=== PATIENT | female | born 1970 | race Two or more races ===

== ENCOUNTER 2019-01-22 21:23 | Emergency (ER) | payer MEDICAID ==
[~2019-01-22] VITALS: Ht 165.1 cm; Wt 70.8 kg
--- NOTE | 2019-01-22 21:55 | NUR ---
PT PRESENTED TO THE ER WITH A C/O RT KNEE PAIN/INJURY S/P HITTING IT ON THE CORNER OF THE COFFEE TABLE 2 DAYS AGO. PT THOUGHT IT WOULD BE BETTER IN A FEW DAYS, BUT STATED THAT IT IS WORSE TODAY. PT HAS MULT ICE PACKS ON THE RT KNEE.
--- NOTE | 2019-01-22 22:30 | NUR ---
PT TOOK HER OWN 600 MG IBUPROPHEN PER JOSÉ MIGUEL SANCHEZ.
--- NOTE | 2019-01-22 22:30 | NUR ---
Sp marx in ED - 01/22/19 at 2300 by MANINDER SIN GARCIA: EMANI
--- NOTE | 2019-01-22 23:00 | NUR ---
CALLING NEELA RE: XRAY
--- NOTE | 2019-01-22 23:26 | NUR ---
PT IS REC'ING A KNEE IMMOBILIZER. PT IS REFUSING CRUTCHES AT THIS TIME. JOSÉ MIGUEL [place] IS AWARE. Patient discharged to home in stable condition. Written and verbal after care instructions given. Patient verbalizes understanding of instruction. PT REC'D A REFERRAL TO [facility] AND A COPY OF THE IMAGING ON DISK. PT ALSO REC'D A COPY OF THE XRAY FINDINGS. PT'S DAUGHTER IS DRIVING THE PT HOME. VSS.
[2019-01-22 23:34] VITALS: BP 122/78
== END 2019-01-22 23:34 | disposition home or self-care (01) ==
LOC: ER 21:26
DX: S80.01XA Contusion of right knee, initial encounter (principal); W22.8XXA Striking against or struck by other objects, initial encounter; Y93.89 Activity, other specified; Y92.89 Other specified places as the place of occurrence of the external cause; Y99.8 Other external cause status
CPT/HCPCS: 73564-TC

== ENCOUNTER 2019-09-15 01:20 | Emergency (ER) | payer MEDICAID ==
[~2019-09-15] VITALS: Ht 165.1 cm; Wt 69.9 kg
--- NOTE | 2019-09-15 01:40 | NUR ---
PT CAME TO ER W/ DAUGHTER C/O EPIGASTRIC PAIN FOR 3 DAYS. PT STATES PAIN DOES NOT RADIATE, AND SHE ALSO HAS C/O BURPING. PT STATES SHE HAD DIARRHEA YESTERDAY AND TOOK IMMODIUM FOR IT. PT CURRENTLY DOES NOT HAVE DIARRHEA. AAOX4. NO SOB. NOT IN ANY DISTRESS. BREATHING EVENLY AND UNLABORED. CONNECTED TO MONITOR.
--- NOTE | 2019-09-15 01:49 | NUR ---
SEEN AND EXAMINED BY
[2019-09-15] MEDS ORDERED: MAG HYDROX/AL HYDROX/SIMETH 30 ML UDC PO ONE (02:00)
[2019-09-15] MEDS ORDERED: IV NS 0.9% 1,000 ML BAG IV ONE (02:00)
[2019-09-15 02:06] LABS: BASOPHILS # (AUTO) 0.1 /CMM (0.0-0.2); BASOPHILS % (AUTO) 1.1 % (0.0-2.0); EOSINOPHILS % (AUTO) 1.3 % (0.0-6.0); HEMATOCRIT 40 % (33-45); MEAN CORPUSCULAR HGB CONC 33 g/dl (31.0-36.0); MEAN CORPUSCULAR VOLUME 88 fL (82-100); MONOCYTES # (AUTO) 0.6 /CMM (0.1-1.30); MONOCYTES % (AUTO) 7.7 % (2.0-12.0); NEUTROPHILS # (AUTO) 3.8 /CMM (1.8-8.9); NEUTROPHILS % (AUTO) 49.9 % (43.0-81.0); PLATELET COUNT (AUTO) 335 /CMM (150-450); RED BLOOD CELL COUNT(AUTO) 4.53 MIL/uL (4.0-5.2); WHITE BLOOD COUNT (AUTO) 7.6 K/uL (4.3-11.0)
[2019-09-15] MEDS ORDERED: MAG HYDROX/AL HYDROX/SIMETH 30 ML UDC ONE (02:06)
[2019-09-15 02:24] LABS: APPEARANCE,URINE CLEAR (CLEAR); BILIRUBIN,URINE NEGATIVE (NEGATIVE); BLOOD, URINE MODERATE Ery/uL (NEGATIVE); COLOR,URINE YELLOW (YELLOW); KETONES,URINE NEGATIVE (NEGATIVE); LEUKOCYTE ESTERASE ,URINE NEGATIVE (NEGATIVE); NITRITE, URINE NEGATIVE (NEGATIVE); PH,URINE 6.5 (5.0-8.0); PROTEIN,URINE NEGATIVE (NEGATIVE); UGLUCOSE NEGATIVE (NEGATIVE); UROBILINOGEN,URINE 0.2 EU/dL (0.2)
[2019-09-15 02:41] LABS: ALBUMIN 4.2 g/dL (3.4-5.0); BILIRUBIN,DIRECT 0.1 mg/dL (0.0-0.2); BILIRUBIN,TOTAL 0.3 mg/dL (0.2-1.0); CALCIUM, SERUM 9.2 mg/dL (8.5-10.1); CREATININE 0.7 mg/dL (0.6-1.3); POTASSIUM 3.8 mmol/L (3.5-5.1); TOTAL PROTEIN, SERUM 8.3 g/dL (6.4-8.2)
--- NOTE | 2019-09-15 02:59 | NUR ---
RE-EVALUATED BY DR. LAND.
--- NOTE | 2019-09-15 03:23 | NUR ---
IV removed. Catheter intact and site benign. Pressure and 4x4 applied to site. No bleeding noted. Patient discharged to home in stable condition. Written and verbal after care instructions given. Patient verbalizes understanding of instruction. Patient is ambulatory with a steady gait. Prescription is given and explained to patient.
[2019-09-15 03:24] VITALS: BP 129/76
== END 2019-09-15 03:25 | disposition home or self-care (01) ==
LOC: ER 01:21
DX: R10.13 Epigastric pain (principal); R11.10 Vomiting, unspecified; K21.9 Gastro-esophageal reflux disease without esophagitis
CPT/HCPCS: 36415; 80048; 80076; 81001; 83690; 84703; 85025; 96360; 99283; J7030; 81000-TC

== ENCOUNTER 2020-02-27 19:46 | Emergency (ER) | payer MEDICAID ==
[~2020-02-27] VITALS: Ht 165.1 cm; Wt 70.8 kg
[2020-02-27 20:00] VITALS: BP 146/82
--- NOTE | 2020-02-27 20:31 | NUR ---
URINE COLLECTED AND SENT TO LAB
[2020-02-27 20:48] LABS: APPEARANCE,URINE Clear (CLEAR); BILIRUBIN,URINE Negative (NEGATIVE); BLOOD, URINE Trace-intact Ery/uL (NEGATIVE); COLOR,URINE Yellow (YELLOW); KETONES,URINE Negative (NEGATIVE); LEUKOCYTE ESTERASE ,URINE Negative (NEGATIVE); NITRITE, URINE Negative (NEGATIVE); PROTEIN,URINE Negative (NEGATIVE); UGLUCOSE Negative (NEGATIVE); UROBILINOGEN,URINE 0.2 EU/dL (0.2)
[2020-02-27 20:58] LABS: BACTERIA,URINE Few /HPF (None Seen); SQUAMOUS EPITHELIAL CELL,UR Few /HPF (None Seen); WBC,URINE NONE SEEN /HPF (0-3)
--- NOTE | 2020-02-27 21:34 | NUR ---
Patient discharged to home in stable condition. Written and verbal after care instructions given. Patient verbalizes understanding of instruction.
== END 2020-02-27 21:38 | disposition home or self-care (01) ==
LOC: ER 19:46
DX: F41.9 Anxiety disorder, unspecified (principal); F43.9 Reaction to severe stress, unspecified; R11.0 Nausea; R73.9 Hyperglycemia, unspecified
CPT/HCPCS: 81000-TC; 82962-TC